=== PATIENT | male | born 1985 | race Caucasian/White ===

== ENCOUNTER 2019-03-18 21:23 | Emergency (ER) | payer SELFPAY ==
[~2019-03-18] VITALS: Ht 170.2 cm; Wt 61.4 kg
[2019-03-18 21:41] VITALS: Ht 170.2 cm; Wt 61.4 kg
[2019-03-18] MEDS ORDERED: KEFLEX500 MG PO (22:54)
[2019-03-18 23:19] VITALS: BP 149/81
== END 2019-03-18 23:13 | disposition home or self-care (01) ==
LOC: D.ER 21:23
DX: S61.219A Laceration without foreign body of unspecified finger without damage to nail, initial encounter (principal); W45.8XXA Other foreign body or object entering through skin, initial encounter